=== PATIENT | male | born 1995 | race Caucasian/White ===

== ENCOUNTER 2018-08-30 01:59 | Emergency (ER) | payer BC ==
[~2018-08-30] VITALS: Ht 172.7 cm; Wt 68.2 kg
[~2018-08-30 01:59] MED LIST: NORCO 325 MG-51 TAB PO
[2018-08-30 02:02] VITALS: BP 140/75; PULSE 69; TEMP 97
[2018-08-30] MEDS ORDERED: LEVAQUIN 5500 MG/TA1 PO (02:15)
== END 2018-08-30 02:30 | disposition home or self-care (01) ==
LOC: COL.ER 01:59
DX: S91.312A Laceration without foreign body, left foot, initial encounter (principal); Z88.2 Allergy status to sulfonamides; X58.XXXA Exposure to other specified factors, initial encounter

== ENCOUNTER → 2020-01-18 | Outpatient (CLI) | payer SELFPAY ==
[~2020-01-18] MED LIST changes: +LEVAQUIN 5500 MG/TA1 PO
== END ==
LOC: EDSTATUS 15:40 → ZCOL.LAB 16:45
DX: U07.1 COVID-19 (principal)